=== PATIENT | male | born 1990 | race Caucasian/White ===

== ENCOUNTER 2018-07-27 16:14 | Emergency (ER) | payer OTHER ==
[2018-07-27 16:20] VITALS: BP 125/67
[2018-07-27] MEDS ORDERED: KETOROLAC 60 MG/2 ML VIAL IM STA (16:32)
[2018-07-27] MEDS ORDERED: ONDANSETRON ODT 4 MG TABLET TL STA (16:32)
--- NOTE | 2018-07-27 16:36 | ED Physician Documentation ---
PD HPI NVD - Stated complaint Stated Complaint: SAUNDERS/NAUSEA - Chief complaint Chief Complaint: Abd Pain - History obtained from History obtained from: Patient - History of Present Illness Timing - onset: Other (He and his present simultaneously for similar complaints. He developed a gradual onset headache with chills and sweats and nausea yesterday. They attributed to eating at a pizza place the night prior. He has abdominal cramping. No diarrhea.) Review of Systems Constitutional: reports: Reviewed and negative Ears: reports: Reviewed and negative Nose: reports: Reviewed and negative Cardiac: reports: Reviewed and negative Respiratory: reports: Reviewed and negative PD PAST MEDICAL HISTORY - Present Medications Home Medications: Ambulatory Orders Medication Instructions Recorded Confirmed Hydrocodone/Acetaminophen 1 - 2 each PO Q6H PRN #10 tablet 07/27/18 [Hydrocodon-Acetaminophen 5-325] Ondansetron Odt [Zofran] 4 mg TL Q6H PRN #10 tablet 07/27/18 - Allergies Allergies/Adverse Reactions: Allergies Allergy/AdvReac Type Severity Reaction Status Date / Time No Known Drug Allergies Allergy Verified 07/27/18 16:20 PD ED PE NORMAL - Vitals Vital signs reviewed: Yes - General General: Alert and oriented X 3, No acute distress - HEENT HEENT: PERRL, EOMI, Moist mucous membranes, Pharynx benign - Neck Neck: Supple, no meningeal sign, No bony TTP - Abdomen Abdomen: Soft, Non tender - Neuro Neuro: Alert and oriented X 3, 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 Eye Opening: Spontaneous Motor: Obeys Commands Verbal: Oriented GCS Score: 15 - Psych Psych: Normal mood, Normal affect Results - Vitals Vitals: Vital Signs - 24 hr 07/27/18 16:18 Temperature 37.0 C Heart Rate 73 Respiratory 18 Rate Blood Pressure 125/67 O2 Saturation 99 Oxygen O2 Source Room air - Labs Labs: Laboratory Tests 07/27/18 07/27/18 16:50 16:50 VBG Total Hgb 16.5 VBG Oxyhemoglobin 52 L VBG Carboxyhemoglobin 1.4 VBG Methemoglobin 0.3 Sodium 139 Potassium 4.3 Chloride 100 L Carbon Dioxide 28 Anion Gap 11.0 BUN 12 Creatinine 0.8 Estimated GFR (MDRD) 115 Glucose 97 Calcium 9.7 Total Bilirubin 0.8 AST 36 ALT 54 Alkaline Phosphatase 84 Total Protein 8.2 Albumin 4.5 Globulin 3.7 Albumin/Globulin Ratio 1.2 Lipase 54 H PD MEDICAL DECISION MAKING - ED course ED course: This is a 20-year-old gentleman who presents with nausea and headache after eating at a pizza place with potentially bad food and his has similar symptoms. No carbon monoxide poisoning. This is likely viral versus food poisoning. He felt okay after medications. Departure - Departure Disposition: 01 Home, Self Care Clinical Impression: Viral syndrome Condition: Good Record reviewed to determine appropriate education?: Yes Instructions: ED Viral Syndrome Prescriptions: Hydrocodone/Acetaminophen [Hydrocodon-Acetaminophen 5-325] 1 - 2 each PO Q6H PRN #10 tablet PRN Reason: pain Ondansetron Odt [Zofran] 4 mg TL Q6H PRN #10 tablet PRN Reason: Nausea / Vomiting Comments: Call your doctor to arrange a follow-up appointment, make the next available appointment. In the interim, return anytime if worse or if new symptoms develop. Forms: Activity restrictions
[2018-07-27 17:14] LABS: ALBUMIN 4.5 g/dL (3.2-5.5); ALBUMIN/GLOBULIN RATIO 1.2 (1.0-2.2); BILIRUBIN,TOTAL 0.8 mg/dL (0.2-1.0); CALCIUM 9.7 mg/dL (8.5-10.3); CREATININE 0.8 mg/dL (0.6-1.2); TOTAL PROTEIN 8.2 g/dL (6.7-8.2)
[2018-07-27] MEDS ORDERED: HYDROcod/ACET 5/325 Prepack 4 PO STA (17:28)
[2018-07-27] MEDS ORDERED: ONDANSETRON ODT 4 MG Prepack 2 TL STA (17:28)
== END 2018-07-27 17:45 | disposition home or self-care (01) ==
LOC: ED 16:14
DX: B34.9 Viral infection, unspecified (principal)
CPT/HCPCS: 36415; 80053; 82375; 83690; 96372; 99283; Q0162

== ENCOUNTER 2018-09-14 14:51 | Emergency (ER) | payer OTHER ==
--- NOTE | 2018-09-14 16:35 | ED Physician Documentation ---
PD HPI SKIN - Stated complaint Stated Complaint: RT GREAT TOE WOUND - Chief complaint Chief Complaint: Trauma Ext - History obtained from History obtained from: Patient - History of Present Illness Timing - onset: How many days ago (several days with toe corner red and then draining some pus. Very tender. No improving with soaks and oitnment. He did try to trim out ingrown nail but not sure if all came out.) Timing - duration: Days Timing - details: Abrupt onset, Still present Location: RLE (great toe nailbed corner) Quality / character: Painful, Discolored (red, around nailbed and now in much of distal phalanx area.), Swelling, Draining (from corner of nailbed) Associated symptoms: No: Fever, Myalgias, N/V/D Similar symptoms before: Has not had sx before Recently seen: Not recently seen Review of Systems Constitutional: denies: Fever, Chills, Myalgias GI: denies: Nausea, Vomiting PD PAST MEDICAL HISTORY - Past Medical History Cardiovascular: None Respiratory: None Neuro: None Endocrine/Autoimmune: None - Past Surgical History Past Surgical History: No - Present Medications Home Medications: Ambulatory Orders Medication Instructions Recorded Confirmed Hydrocodone/Acetaminophen 1 - 2 each PO Q6H PRN #10 tablet 07/27/18 [Hydrocodon-Acetaminophen 5-325] Ondansetron Odt [Zofran] 4 mg TL Q6H PRN #10 tablet 07/27/18 Ibuprofen 600 mg PO TID PRN #25 tablet 09/14/18 Mupirocin 1 applic TP TID #15 g 09/14/18 Sulfamethox/Trimeth 800/160 1 each PO BID #10 tablet 09/14/18 [Bactrim Ds 800/160] - Allergies Allergies/Adverse Reactions: Allergies Allergy/AdvReac Type Severity Reaction Status Date / Time No Known Drug Allergies Allergy Verified 09/14/18 15:04 - Social History Does the pt smoke?: No Smoking Status: Never smoker Does the pt drink ETOH?: Yes Does the pt have substance abuse?: No - Immunizations Immunizations are current?: Yes - POLST Patient has POLST: No PD ED PE NORMAL - Vitals Vital signs reviewed: Yes - General General: Alert and oriented X 3, No acute distress (except tender on exam of toe), Well developed/nourished - Derm Derm: Normal color, Warm and dry - Extremities Extremities: Other (right great toe with lateral aspect redness, swelling and this extends to the end of the toe almost to the IP joint area. Some purulence at corner. There is small portion of ingrown nail still deep in corner. I was able to gently scissor it out and clear the corner with brief discomfort. ) - Neuro Neuro: No motor deficit, No sensory deficit Results - Vitals Vitals: Vital Signs - 24 hr 09/14/18 09/14/18 15:02 17:19 Temperature 37.0 C 36.7 C Heart Rate 57 L 65 Respiratory 18 20 Rate Blood Pressure 122/78 136/85 H O2 Saturation 96 99 Oxygen O2 Source Room air PD MEDICAL DECISION MAKING - ED course Complexity details: considered differential (paronychia with still small bit of ingrown nail, that is removed now. Should improve. Local cellulitis though. ), d/w patient Departure - Departure Disposition: 01 Home, Self Care Clinical Impression: Paronychia due to ingrown nail Condition: Stable Record reviewed to determine appropriate education?: Yes Instructions: ED Paronychia Ch Follow-Up: [facility] [Provider Group] Prescriptions: Ibuprofen 600 mg PO TID PRN #25 tablet PRN Reason: Pain Mupirocin 1 applic TP TID #15 g Sulfamethox/Trimeth 800/160 [Bactrim Ds 800/160] 1 each PO BID #10 tablet Comments: Off work today and tomorrow due to acute toe infection. Recheck if not improving during that time. Soak the toe several times a day in warm water. This is to promote better continued drainage. Use mupirocin and topical antibiotic as directed. Bactrim antibiotic twice daily for 5 days. Discharge Date/Time: 09/14/18 17:20
[2018-09-14] MEDS ORDERED: MUPIROCIN 2% OINT 1 GM TOP STA (17:04)
[2018-09-14] MEDS ORDERED: IBUPROFEN 600 MG TABLET PO STA (17:04)
[2018-09-14] MEDS ORDERED: SULFAMETH/TRIMETH DS 800/160 MG TABLET PO STA (17:04)
[2018-09-14 17:20] VITALS: BP 136/85
== END 2018-09-14 17:20 | disposition home or self-care (01) ==
LOC: ED 14:51
DX: L03.031 Cellulitis of right toe (principal); L60.0 Ingrowing nail
CPT/HCPCS: 99283; A9270

== ENCOUNTER 2019-03-31 15:51 | Emergency (ER) | payer OTHER ==
[2019-03-31] MEDS ORDERED: KETOROLAC 30 MG/ML VIAL IVP STA (16:36)
[2019-03-31] MEDS ORDERED: SODIUM CHLORIDE 0.9% 1,000 ML IV ONE (16:36)
--- NOTE | 2019-03-31 16:39 | ED Physician Documentation ---
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 He came sick yesterday with fevers, sweats, runny nose. Was seen on the [place] and diagnosed with influenza B and started on Tamiflu. Subsequent to that, last night, he was acting strange, using excessively foul language with the and inappropriately sexual and then talked about going to [place] to get a puppy. Today he was having Rigor's on the couch. Denies vomiting. No diarrhea.) Review of Systems Constitutional: reports: Fever, Chills, Fatigue Nose: reports: Rhinorrhea / runny nose GI: denies: Vomiting, Diarrhea PD PAST MEDICAL HISTORY - Past Medical History Cardiovascular: None Respiratory: None Neuro: None Endocrine/Autoimmune: None - Past Surgical History Past Surgical History: No - Present Medications Home Medications: Ambulatory Orders Medication Instructions Recorded Confirmed Hydrocodone/Acetaminophen 1 - 2 each PO Q6H PRN #10 tablet 07/27/18 [Hydrocodon-Acetaminophen 5-325] Ondansetron Odt [Zofran] 4 mg TL Q6H PRN #10 tablet 07/27/18 Ibuprofen 600 mg PO TID PRN #25 tablet 09/14/18 Mupirocin 1 applic TP TID #15 g 09/14/18 Sulfamethox/Trimeth 800/160 1 each PO BID #10 tablet 09/14/18 [Bactrim Ds 800/160] - Allergies Allergies/Adverse Reactions: Allergies Allergy/AdvReac Type Severity Reaction Status Date / Time No Known Drug Allergies Allergy Verified 03/31/19 15:54 - Social History Does the pt smoke?: No Smoking Status: Never smoker Does the pt drink ETOH?: Yes Does the pt have substance abuse?: No - Immunizations Immunizations are current?: Yes - POLST Patient has POLST: No PD ED PE NORMAL - Vitals Vital signs reviewed: Yes - General General: Alert and oriented X 3, No acute distress - HEENT HEENT: PERRL, Pharynx benign - Neck Neck: Supple, no meningeal sign, No bony TTP - Cardiac Cardiac: RRR, No murmur - Respiratory Respiratory: No respiratory distress, Clear bilaterally - Abdomen Abdomen: Soft, Non tender - Back Back: No CVA TTP, No spinal TTP - Derm Derm: Normal color, Warm and dry - Extremities Extremities: No edema, No calf tenderness / cord - Neuro Neuro: Alert and oriented X 3, Normal speech - Psych Psych: Normal mood, Normal affect Results - Vitals Vitals: Vital Signs - 24 hr 03/31/19 15:54 Temperature 36.8 C Heart Rate 65 Respiratory 18 Rate Blood Pressure 113/68 O2 Saturation 97 Oxygen O2 Source Room air - Labs Labs: Laboratory Tests 03/31/19 03/31/19 18:44 18:44 WBC 7.2 RBC 4.50 L Hgb 13.4 L Hct 40.6 L MCV 90.2 MCH 29.8 MCHC 33.0 RDW 12.4 Plt Count 202 MPV 9.3 Neut # (Auto) 4.8 Lymph # (Auto) 1.3 L [place] # (Auto) 0.9 Eos # (Auto) 0.1 Baso # (Auto) 0.0 Absolute Nucleated RBC 0.00 Nucleated RBC % 0.0 Sodium 140 Potassium 4.1 Chloride 107 Carbon Dioxide 27 Anion Gap 6.0 BUN 7 Creatinine 0.8 Estimated GFR (MDRD) 115 Glucose 100 Calcium 8.3 L Total Bilirubin 0.7 AST 31 ALT 57 Alkaline Phosphatase 56 Total Protein 6.8 Albumin 3.6 Globulin 3.2 Albumin/Globulin Ratio 1.1 Lipase 41 PD MEDICAL DECISION MAKING - ED course ED course: This is a 28-year-old gentleman with known influenza B diagnosed in the clinic yesterday now with some apparent but mild neuropsychiatric side effects from Tamiflu. He was also having some Reiger's on the couch prior to arrival versus less likely seizure activity, he was shaking on the couch but his mental status was not significantly altered so I doubt seizure. We will give him some IV fluids. Given the side effects he is advised to stop Tamiflu. Departure - Departure Disposition: 01 Home, Self Care Clinical Impression: Influenza B Condition: Good Record reviewed to determine appropriate education?: Yes Instructions: ED Flu Comments: Stop the Tamiflu/oseltamivir, I think for you the side effects are worse than any shortening of the illness it will offer you. Drink plenty of fluids. Ibuprofen as needed for pain or fevers. Forms: Activity restrictions
[2019-03-31 18:47] LABS: BASOPHILS % (AUTO) 0.4 %; EOSINOPHILS # (AUTO) 0.1 10^3/uL (0.0-0.7); EOSINOPHILS % (AUTO) 1.5 %; HGB - HEMOGLOBIN 13.4 g/dL (14.0-18.0); LYMPHOCYTES # (AUTO) 1.3 10^3/uL (1.5-3.5); LYMPHOCYTES % (AUTO) 18.1 %; MEAN CORPUSCULAR HEMOGLOBIN 29.8 pg (27.0-31.0); MEAN CORPUSCULAR VOLUME 90.2 fL (80.0-94.0); MEAN PLATELET VOLUME 9.3 fL (7.4-11.4); MONOCYTES # (AUTO) 0.9 10^3/uL (0.0-1.0); MONOCYTES % (AUTO) 12.8 %; NEUTROPHILS # (AUTO) 4.8 10^3/uL (1.5-6.6); NEUTROPHILS % (AUTO) 66.9 %; PLT - PLATELET COUNT 202 10^3/uL (130-450); RED CELL DISTRIBUTION WIDTH 12.4 % (12.0-15.0); WHITE BLOOD COUNT 7.2 x10^3/uL (4.8-10.8)
[2019-03-31 19:01] LABS: ALBUMIN 3.6 g/dL (3.2-5.5); ALBUMIN/GLOBULIN RATIO 1.1 (1.0-2.2); BILIRUBIN,TOTAL 0.7 mg/dL (0.2-1.0); CALCIUM 8.3 mg/dL (8.5-10.3); CREATININE 0.8 mg/dL (0.6-1.2); TOTAL PROTEIN 6.8 g/dL (6.7-8.2)
[2019-03-31 19:10] VITALS: BP 130/84
== END 2019-03-31 19:10 | disposition home or self-care (01) ==
LOC: ED 15:51
DX: R46.89 Other symptoms and signs involving appearance and behavior (principal); R68.89 Other general symptoms and signs; T37.5X5A Adverse effect of antiviral drugs, initial encounter; J11.1 Influenza due to unidentified influenza virus with other respiratory manifestations
CPT/HCPCS: 36415; 80053; 83690; 85025; 96361; 96374; 99284

== ENCOUNTER 2019-04-03 10:53 | Emergency (ER) | payer OTHER ==
[2019-04-03] MEDS ORDERED: ALBUTEROL NEB 2.5 MG/3 ML INH STA (12:23)
[2019-04-03] MEDS ORDERED: SODIUM CHLORIDE 0.9% 2,000 ML IV ONE (12:31)
--- NOTE | 2019-04-03 12:35 | ED Physician Documentation ---
PD HPI URI - Stated complaint Stated Complaint: SOA/DIZZY/COUGH - Chief complaint Chief Complaint: Fever - History obtained from History obtained from: Patient, Family - History of Present Illness Timing - onset: How many days ago (4) Timing duration: Days (4) Timing details: Gradual onset Pain level max: 5 Pain level now: 5 Associated symptoms: Fever, Chills, Sweats, Nasal congestion, Rhinorrhea, Productive cough (green/yellow), NVD (x1 vomit). No: Hemoptysis, Chest pain, Dyspnea Contributing factors: Sick contact Improves by: Rest Worsened by: Activity, Breathing Similar symptoms before: Diagnosis (influenza B) Recently seen: Emergency Dept (2 days ago for same. States not better) Review of Systems Ten Systems: 10 systems reviewed and negative Constitutional: reports: Fever, Chills Nose: reports: Rhinorrhea / runny nose, Congestion Respiratory: reports: Cough GI: reports: Vomiting. denies: Abdominal Pain, Diarrhea Skin: denies: Rash Musculoskeletal: denies: Neck pain, Back pain Neurologic: denies: Headache PD PAST MEDICAL HISTORY - Past Medical History Cardiovascular: None Respiratory: None Neuro: None Endocrine/Autoimmune: None GI: None : None HEENT: None Psych: None Musculoskeletal: None Derm: None - Past Surgical History Past Surgical History: No - Present Medications Home Medications: Ambulatory Orders Medication Instructions Recorded Confirmed Hydrocodone/Acetaminophen 1 - 2 each PO Q6H PRN #10 tablet 07/27/18 [Hydrocodon-Acetaminophen 5-325] Ondansetron Odt [Zofran] 4 mg TL Q6H PRN #10 tablet 07/27/18 Ibuprofen 600 mg PO TID PRN #25 tablet 09/14/18 Mupirocin 1 applic TP TID #15 g 09/14/18 Sulfamethox/Trimeth 800/160 1 each PO BID #10 tablet 09/14/18 [Bactrim Ds 800/160] Benzonatate [Tessalon Perle] 100 - 200 mg PO TID PRN #30 capsule 04/03/19 Cetirizine HCl/Pseudoephedrine 1 each PO BID PRN #30 tab.er.12h 04/03/19 [Zyrtec-D Tablet] Doxycycline Hyclate 100 mg PO BID #20 capsule 04/03/19 Ondansetron Odt [Zofran] 4 mg TL Q6H PRN #10 tablet 04/03/19 - Allergies Allergies/Adverse Reactions: Allergies Allergy/AdvReac Type Severity Reaction Status Date / Time oseltamivir [From Tamiflu] Allergy Hallucinati Verified 04/03/19 11:07 ons - Social History Does the pt smoke?: No Smoking Status: Never smoker Does the pt drink ETOH?: Yes Does the pt have substance abuse?: No - Immunizations Immunizations are current?: Yes - POLST Patient has POLST: No PD ED PE NORMAL - Vitals Vital signs reviewed: Yes - General General: Alert and oriented X 3, No acute distress, Well developed/nourished - HEENT HEENT: PERRL, Ears normal, Pharynx benign, Other (dry lips) - Neck Neck: Supple, no meningeal sign, No adenopathy - Cardiac Cardiac: RRR, Strong equal pulses - Respiratory Respiratory: Other (mild wheezing B) - Abdomen Abdomen: Soft, Non tender, Non distended - Back Back: No CVA TTP - Derm Derm: Warm and dry, No rash - Extremities Extremities: No edema - Neuro Neuro: Alert and oriented X 3 - Psych Psych: Normal mood, Normal affect Results - Vitals Vitals: Vital Signs - 24 hr 04/03/19 04/03/19 04/03/19 11:03 12:30 14:28 Temperature 36.9 C 37.0 C Heart Rate 66 70 77 Respiratory 16 16 20 Rate Blood Pressure 118/78 133/75 H O2 Saturation 98 98 Oxygen O2 Source Room air - Labs Labs: Laboratory Tests 04/03/19 04/03/19 04/03/19 13:02 13:02 13:37 WBC 6.0 RBC 5.17 Hgb 15.1 Hct 45.7 MCV 88.4 MCH 29.2 MCHC 33.0 RDW 12.1 Plt Count 240 MPV 9.7 Neut # (Auto) 3.8 Lymph # (Auto) 1.5 [place] # (Auto) 0.5 Eos # (Auto) 0.1 Baso # (Auto) 0.0 Absolute Nucleated RBC 0.00 Nucleated RBC % 0.0 Sodium 138 Potassium 3.7 Chloride 101 Carbon Dioxide 27 Anion Gap 10.0 BUN 8 Creatinine 0.9 Estimated GFR (MDRD) 100 Glucose 112 H Calcium 9.1 Group A Strep Rapid Negative - Rads (name of study) cxr Radiology: Prelim report reviewed, EMP read contemporaneously, See rad report (1. Patchy left basilar bronchopneumonia. ) PD MEDICAL DECISION MAKING - ED course Complexity details: reviewed results, re-evaluated patient, considered differential, d/w patient, d/w family ED course: 28-year-old male with bronchopneumonia following influenza B. Given IV fluids. Will start on antibiotics. No hypoxia. No respiratory distress. Normal mentation. Patient is well-appearing, nontoxic. Patient counseled regarding signs and symptoms for which I believe and urgent re-evaluation would be necessary. Patient with good understanding of and agreement to plan and is comfortable going home at this time This document was made in part using voice recognition software. While efforts are made to proofread this document, sound alike and grammatical errors may occur. Departure - Departure Disposition: 01 Home, Self Care Clinical Impression: Influenza B Pneumonia Qualifiers: Pneumonia type: due to unspecified organism Laterality: left Lung location: lower lobe of lung Qualified Code(s): J18.9 - Pneumonia, unspecified organism Condition: Good Instructions: ED Flu, ED Pneumonia Adult Follow-Up: Tali Smart MD [Primary Care Provider] - Within 1 week Prescriptions: Benzonatate [Tessalon Perle] 100 - 200 mg PO TID PRN #30 capsule PRN Reason: Cough Cetirizine HCl/Pseudoephedrine [Zyrtec-D Tablet] 1 each PO BID PRN #30 tab.er.12h PRN Reason: nasal congestion Doxycycline Hyclate 100 mg PO BID #20 capsule Ondansetron Odt [Zofran] 4 mg TL Q6H PRN #10 tablet PRN Reason: Nausea / Vomiting Comments: Drink plenty of fluids and rest. Return if you worsen. Take all antibiotics until gone. Follow-up with your doctor for further care. Forms: Activity restrictions Discharge Date/Time: 04/03/19 14:32
[2019-04-03 13:15] LABS: BASOPHILS % (AUTO) 0.3 %; EOSINOPHILS # (AUTO) 0.1 10^3/uL (0.0-0.7); EOSINOPHILS % (AUTO) 2.2 %; HGB - HEMOGLOBIN 15.1 g/dL (14.0-18.0); LYMPHOCYTES # (AUTO) 1.5 10^3/uL (1.5-3.5); LYMPHOCYTES % (AUTO) 24.5 %; MEAN CORPUSCULAR HEMOGLOBIN 29.2 pg (27.0-31.0); MEAN CORPUSCULAR VOLUME 88.4 fL (80.0-94.0); MEAN PLATELET VOLUME 9.7 fL (7.4-11.4); MONOCYTES # (AUTO) 0.5 10^3/uL (0.0-1.0); MONOCYTES % (AUTO) 8.7 %; NEUTROPHILS # (AUTO) 3.8 10^3/uL (1.5-6.6); NEUTROPHILS % (AUTO) 63.8 %; PLT - PLATELET COUNT 240 10^3/uL (130-450); RED BLOOD COUNT 5.17 10^6/uL (4.70-6.10); RED CELL DISTRIBUTION WIDTH 12.1 % (12.0-15.0)
--- NOTE | 2019-04-03 13:22 | XRAY Report ---
Reason: cough Procedure Date: 04/03/2019 Accession Number: [id number] / [id number] Procedure: XR - Chest 2 View X-Ray CPT Code: 95964 Final Report FULL RESULT: EXAM: CHEST RADIOGRAPHY EXAM DATE: 04/03/2019 12:58 PM. CLINICAL HISTORY: Cough. COMPARISON: None. TECHNIQUE: 2 views. FINDINGS: Lungs/Pleura: There is asymmetric mild patchy airspace disease at the lateral left lung base. The right lung is clear. Negative for pleural effusion and pneumothorax. Mediastinum: The heart size is normal. The trachea is midline. Other: None. IMPRESSION: 1. Patchy left basilar bronchopneumonia. RADIA
[2019-04-03] MEDS ORDERED: DOXYCYCLINE 100 MG TABLET PO STA (13:27)
[2019-04-03 13:50] LABS: RAPID STREP SCREEN Negative (Negative)
[2019-04-03 14:11] LABS: CALCIUM 9.1 mg/dL (8.5-10.3); CREATININE 0.9 mg/dL (0.6-1.2)
[2019-04-03 14:28] VITALS: BP 133/75
== END 2019-04-03 14:32 | disposition home or self-care (01) ==
LOC: ED 10:53
DX: J10.08 Influenza due to other identified influenza virus with other specified pneumonia (principal); J18.0 Bronchopneumonia, unspecified organism
CPT/HCPCS: 36415; 71046; 80048; 85025; 87070; 87430; 94640; 96360; 99284; A9270

== ENCOUNTER 2019-04-06 17:02 | Emergency (ER) | payer OTHER ==
--- NOTE | 2019-04-06 17:43 | XRAY Report ---
Reason: PNA, worse after 3 days of ABX Procedure Date: 04/06/2019 Accession Number: [id number] / [id number] Procedure: XR - Chest 2 View X-Ray CPT Code: 33206 Final Report FULL RESULT: EXAM: CHEST RADIOGRAPHY EXAM DATE: 04/06/2019 05:34 PM. CLINICAL HISTORY: PNA, worse after 3 days of ABX. Cough, syncope. COMPARISON: CHEST 2 VIEW 04/03/2019 12:48 PM. TECHNIQUE: 2 views. FINDINGS: Lungs/Pleura: Patchy infiltration left lung base, decreased slightly since previous study. No new infiltrate, consolidation, effusion, or pneumothorax. Mediastinum: Heart and mediastinal contours are unremarkable. Other: None. IMPRESSION: Left basilar infiltrate, decreased slightly. RADIA
[2019-04-06] MEDS ORDERED: guaiFENesin/CODEINE 5 ML UDC PO STA (18:16)
[2019-04-06] MEDS ORDERED: LACTATED RINGERS 2,000 ML IV STA (18:16)
--- NOTE | 2019-04-06 18:19 | ED Physician Documentation ---
PD HPI DYSPNEA - Stated complaint Stated Complaint: COUGH,DISORIENTED - Chief complaint Chief Complaint: Resp - History obtained from History obtained from: Patient (28-year-old gentleman has been sick for a week now initial diagnosis of influenza B did not tolerate Tamiflu due to neuropsychiatric side effects. Subsequently developed a left lower lobe pneumonia and is on Doxycycline. Presyncopal when he coughs.) Review of Systems Constitutional: reports: Chills, Fatigue. denies: Fever Nose: denies: Rhinorrhea / runny nose Throat: denies: Sore throat Cardiac: denies: Chest pain / pressure, Palpitations Respiratory: reports: Dyspnea, Cough. denies: Hemoptysis, Wheezing PD PAST MEDICAL HISTORY - Past Medical History Cardiovascular: None Respiratory: None Neuro: None Endocrine/Autoimmune: None GI: None : None HEENT: None Psych: None Musculoskeletal: None Derm: None - Past Surgical History Past Surgical History: No - Present Medications Home Medications: Ambulatory Orders Medication Instructions Recorded Confirmed Hydrocodone/Acetaminophen 1 - 2 each PO Q6H PRN #10 tablet 07/27/18 [Hydrocodon-Acetaminophen 5-325] Ondansetron Odt [Zofran] 4 mg TL Q6H PRN #10 tablet 07/27/18 Ibuprofen 600 mg PO TID PRN #25 tablet 09/14/18 Mupirocin 1 applic TP TID #15 g 09/14/18 Sulfamethox/Trimeth 800/160 1 each PO BID #10 tablet 09/14/18 [Bactrim Ds 800/160] Benzonatate [Tessalon Perle] 100 - 200 mg PO TID PRN #30 capsule 04/03/19 Cetirizine HCl/Pseudoephedrine 1 each PO BID PRN #30 tab.er.12h 04/03/19 [Zyrtec-D Tablet] Doxycycline Hyclate 100 mg PO BID #20 capsule 04/03/19 Ondansetron Odt [Zofran] 4 mg TL Q6H PRN #10 tablet 04/03/19 oxyCODONE [Roxicodone] 5 mg PO Q4H PRN #15 tablet 04/06/19 - Allergies Allergies/Adverse Reactions: Allergies Allergy/AdvReac Type Severity Reaction Status Date / Time oseltamivir [From Tamiflu] Allergy Hallucinati Verified 04/06/19 17:17 ons - Social History Does the pt smoke?: No Smoking Status: Never smoker Does the pt drink ETOH?: Yes Does the pt have substance abuse?: No - Immunizations Immunizations are current?: Yes - POLST Patient has POLST: No PD ED PE NORMAL - Vitals Vital signs reviewed: Yes - General General: Other (Frequent coughing, no respiratory distress though) - HEENT HEENT: Pharynx benign - Neck Neck: Supple, no meningeal sign, No bony TTP - Cardiac Cardiac: RRR, No murmur - Respiratory Respiratory: No respiratory distress, Other (Crackles at the left base, nonlabored) - Abdomen Abdomen: Non tender - Back Back: No CVA TTP, No spinal TTP - Derm Derm: Normal color, Warm and dry - Extremities Extremities: No edema, No calf tenderness / cord - Neuro Neuro: Alert and oriented X 3, Normal speech Results - Vitals Vitals: Vital Signs - 24 hr 04/06/19 17:14 Temperature 37 C Heart Rate 68 Respiratory 18 Rate Blood Pressure 93/65 O2 Saturation 95 Oxygen O2 Source Room air - EKG (time done) 1721 Rate: Rate (enter#) (76) Rhythm: NSR Alpha: Normal Intervals: Normal TN QRS: Normal Ischemia: Normal ST segments Computer interpretation: Agree with computer - Labs Labs: Laboratory Tests 04/06/19 04/06/19 04/06/19 18:23 18:23 18:23 WBC 5.5 RBC 4.66 L Hgb 14.1 Hct 41.2 L MCV 88.4 MCH 30.3 MCHC 34.2 RDW 12.3 Plt Count 319 MPV 9.5 Neut # (Auto) 3.5 Lymph # (Auto) 1.4 L [place] # (Auto) 0.4 Eos # (Auto) 0.1 Baso # (Auto) 0.1 Absolute Nucleated RBC 0.00 Nucleated RBC % 0.0 PT 13.6 H INR 1.2 Sodium 138 Potassium 3.9 Chloride 104 Carbon Dioxide 27 Anion Gap 7.0 BUN 9 Creatinine 0.9 Estimated GFR (MDRD) 100 Glucose 115 H Calcium 8.8 Total Bilirubin 0.5 AST 60 H ALT 78 H Alkaline Phosphatase 65 Total Protein 7.5 Albumin 3.8 Globulin 3.7 Albumin/Globulin Ratio 1.0 Lipase 45 Acetaminophen Infectious [place] Assay 04/06/19 04/06/19 18:23 18:23 WBC RBC Hgb Hct MCV MCH MCHC RDW Plt Count MPV Neut # (Auto) Lymph # (Auto) [place] # (Auto) Eos # (Auto) Baso # (Auto) Absolute Nucleated RBC Nucleated RBC % PT INR Sodium Potassium Chloride Carbon Dioxide Anion Gap BUN Creatinine Estimated GFR (MDRD) Glucose Calcium Total Bilirubin AST ALT Alkaline Phosphatase Total Protein Albumin Globulin Albumin/Globulin Ratio Lipase Acetaminophen < 10 L Infectious [place] Assay NEGATIVE - Rads (name of study) 2v chest Radiology: EMP read contemporaneously (Left basilar infiltrate slightly decreased from prior) PD MEDICAL DECISION MAKING - ED course ED course: 1 8-year-old gentleman with known pneumonia presents with presyncope while coughing, likely due to increase in traffic pressure associated with dehydration. Lab work is unremarkable except for very mild transaminitis and he is taking multiple things with acetaminophen and he understands he needs to stop. Departure - Departure Disposition: 01 Home, Self Care Clinical Impression: Pneumonia, Influenza B Condition: Good Record reviewed to determine appropriate education?: Yes Instructions: Pneumonia Dc Prescriptions: oxyCODONE [Roxicodone] 5 mg PO Q4H PRN #15 tablet PRN Reason: pain or cough Comments[place]. Return if worse. Forms: Activity restrictions
[2019-04-06 18:27] LABS: BASOPHILS # (AUTO) 0.1 10^3/uL (0.0-0.1); BASOPHILS % (AUTO) 0.9 %; EOSINOPHILS # (AUTO) 0.1 10^3/uL (0.0-0.7); EOSINOPHILS % (AUTO) 2.3 %; HGB - HEMOGLOBIN 14.1 g/dL (14.0-18.0); LYMPHOCYTES # (AUTO) 1.4 10^3/uL (1.5-3.5); LYMPHOCYTES % (AUTO) 25.6 %; MEAN CORPUSCULAR HEMOGLOBIN 30.3 pg (27.0-31.0); MEAN CORPUSCULAR HGB CONC 34.2 g/dL (32.0-36.0); MEAN CORPUSCULAR VOLUME 88.4 fL (80.0-94.0); MEAN PLATELET VOLUME 9.5 fL (7.4-11.4); MONOCYTES # (AUTO) 0.4 10^3/uL (0.0-1.0); MONOCYTES % (AUTO) 7.6 %; NEUTROPHILS # (AUTO) 3.5 10^3/uL (1.5-6.6); NEUTROPHILS % (AUTO) 62.9 %; PLT - PLATELET COUNT 319 10^3/uL (130-450); RED BLOOD COUNT 4.66 10^6/uL (4.70-6.10); RED CELL DISTRIBUTION WIDTH 12.3 % (12.0-15.0); WHITE BLOOD COUNT 5.5 x10^3/uL (4.8-10.8)
[2019-04-06 18:48] LABS: ALBUMIN 3.8 g/dL (3.2-5.5); BILIRUBIN,TOTAL 0.5 mg/dL (0.2-1.0); CALCIUM 8.8 mg/dL (8.5-10.3); CREATININE 0.9 mg/dL (0.6-1.2); TOTAL PROTEIN 7.5 g/dL (6.7-8.2)
[2019-04-06 19:18] LABS: INR 1.2 (0.8-1.2); PT - PROTHROMBIN TIME 13.6 secs (9.9-12.6)
[2019-04-06 19:57] VITALS: BP 146/83
== END 2019-04-06 19:56 | disposition home or self-care (01) ==
LOC: ED 17:02
DX: J10.00 Influenza due to other identified influenza virus with unspecified type of pneumonia (principal); E86.0 Dehydration; R74.0 Nonspecific elevation of levels of transaminase and lactic acid dehydrogenase [LDH]
CPT/HCPCS: 36415; 71046; 80053; 83690; 85025; 85610; 86308; 93005; 96360; 99284; A9270; J7120; 80307

== ENCOUNTER 2019-04-16 06:23 | Emergency (ER) | payer OTHER ==
--- NOTE | 2019-04-16 07:01 | ED Physician Documentation ---
PD HPI URI - Stated complaint Stated Complaint: SOA/COUGH - Chief complaint Chief Complaint: Heent - History obtained from History obtained from: Patient - History of Present Illness Timing - onset: How many weeks ago (2) Timing duration: Weeks (2) Timing details: Gradual onset, Still present Associated symptoms: Productive cough, Dyspnea. No: Fever (did initially, but not recent fever.), Nasal congestion, Sore throat, Bilateral edema Contributing factors: No: Sick contact Similar symptoms before: Has not had sx before Recently seen: Clinic (Dx with pneumonia and Rx with doxy and Tessalon. Patient states not really improved. Tried to go back to work today, but repetitive cough and could not function well and coughing to point of gagging at times. No wheeze nor whoop.) Review of Systems Constitutional: denies: Fever, Chills Nose: reports: Congestion. denies: Rhinorrhea / runny nose Throat: denies: Sore throat Cardiac: denies: Chest pain / pressure Respiratory: reports: Dyspnea, Cough. denies: Wheezing GI: denies: Nausea, Vomiting, Diarrhea Skin: denies: Rash, Lesions PD PAST MEDICAL HISTORY - Past Medical History Past Medical History: No Cardiovascular: None Respiratory: None Neuro: None Endocrine/Autoimmune: None GI: None : None HEENT: None Psych: None Musculoskeletal: None Derm: None - Past Surgical History Past Surgical History: No - Present Medications Home Medications: Ambulatory Orders Medication Instructions Recorded Confirmed Hydrocodone/Acetaminophen 1 - 2 each PO Q6H PRN #10 tablet 07/27/18 [Hydrocodon-Acetaminophen 5-325] Ondansetron Odt [Zofran] 4 mg TL Q6H PRN #10 tablet 07/27/18 Ibuprofen 600 mg PO TID PRN #25 tablet 09/14/18 Mupirocin 1 applic TP TID #15 g 09/14/18 Sulfamethox/Trimeth 800/160 1 each PO BID #10 tablet 09/14/18 [Bactrim Ds 800/160] Benzonatate [Tessalon Perle] 100 - 200 mg PO TID PRN #30 capsule 04/03/19 Cetirizine HCl/Pseudoephedrine 1 each PO BID PRN #30 tab.er.12h 04/03/19 [Zyrtec-D Tablet] Doxycycline Hyclate 100 mg PO BID #20 capsule 04/03/19 Ondansetron Odt [Zofran] 4 mg TL Q6H PRN #10 tablet 04/03/19 oxyCODONE [Roxicodone] 5 mg PO Q4H PRN #15 tablet 04/06/19 Albuterol Sulfate [Albuterol 2 puffs IH QID #1 hfa.aer.ad 04/16/19 Sulfate Hfa] Azithromycin [Zithromax] 0 mg PO DAILY #6 tablet 04/16/19 dexAMETHasone [Decadron] 4 mg PO DAILY #7 tablet 04/16/19 guaiFENesin/CODEINE [Robitussin AC] 10 ml PO Q6H PRN #240 ml 04/16/19 - Allergies Allergies/Adverse Reactions: Allergies Allergy/AdvReac Type Severity Reaction Status Date / Time oseltamivir [From Tamiflu] Allergy Hallucinati Verified 04/16/19 06:33 ons - Living Situation Living Arrangement: reports: At home - Social History Does the pt smoke?: No Smoking Status: Never smoker Does the pt drink ETOH?: Yes Does the pt have substance abuse?: No - Family History Family history: reports: Non contributory - Immunizations Immunizations are current?: Yes - POLST Patient has POLST: No PD ED PE NORMAL - Vitals Vital signs reviewed: Yes - General General: Alert and oriented X 3, Well developed/nourished, Other (repetitive cough with some wheezing sound. ) - HEENT HEENT: Moist mucous membranes, Pharynx benign - Neck Neck: Supple, no meningeal sign, No adenopathy - Cardiac Cardiac: RRR, No murmur - Respiratory Respiratory: Clear bilaterally - Abdomen Abdomen: Soft, Non tender - Derm Derm: Normal color, Warm and dry - Neuro Neuro: Alert and oriented X 3, No motor deficit, Normal speech Results - Vitals Vitals: Vital Signs - 24 hr 04/16/19 04/16/19 04/16/19 06:31 07:32 08:19 Temperature 36.6 C Heart Rate 73 80 82 Respiratory 17 20 18 Rate Blood Pressure 123/80 121/84 H O2 Saturation 96 96 Oxygen O2 Source Room air - Rads (name of study) chest xray Radiology: Prelim report reviewed (improved infiltrate), See rad report PD MEDICAL DECISION MAKING - ED course Complexity details: considered differential (persistent cough post pneumonia, could be just irritation but has some productive sputum and malaise still, so might be active infection still. ), d/w patient Departure - Departure Disposition: 01 Home, Self Care Clinical Impression: Persistent cough Upper respiratory infection Qualifiers: URI type: unspecified URI Qualified Code(s): J06.9 - Acute upper respiratory infection, unspecified Condition: Stable Record reviewed to determine appropriate education?: Yes Follow-Up: [facility] [Provider Group] Prescriptions: Albuterol Sulfate [Albuterol Sulfate Hfa] 2 puffs IH QID #1 hfa.aer.ad Azithromycin [Zithromax] 0 mg PO DAILY #6 tablet dexAMETHasone [Decadron] 4 mg PO DAILY #7 tablet guaiFENesin/CODEINE [Robitussin AC] 10 ml PO Q6H PRN #240 ml PRN Reason: Cough Comments: Decadron steroid anti-inflammatory should help with the cough through the day today and into tomorrow. It decreases inflammation through the bronchials. There may still be some persistent infection though commonly this is just persisting irritation. However we can try different antibiotic Zithromax for 5 days. Use the albuterol inhaler 2 puffs 4 times a day as it may have some added benefit in combination with the rest. Codeine cough medicine in the short-term to help with some of the cough suppression. Off work today and possibly tomorrow until you are feeling a bit better. Your chest x-ray is clear so the pneumonia has resolved. Forms: Activity restrictions Discharge Date/Time: 04/16/19 08:20
[2019-04-16] MEDS ORDERED: DEXAMETHASONE 10 MG/ML VIAL PO STA (07:15)
[2019-04-16] MEDS ORDERED: ALBUTEROL NEB 2.5 MG/3 ML INH STA (07:15)
[2019-04-16] MEDS ORDERED: CHERRY SYRUP 10 ML UDC PO ONE (07:15)
[2019-04-16] MEDS ORDERED: BENZONATATE 100 MG CAPSULE PO STA (07:15)
--- NOTE | 2019-04-16 07:40 | XRAY Report ---
Reason: dyspnea/ cough Procedure Date: 04/16/2019 Accession Number: [id number] / [id number] Procedure: XR - Chest 2 View X-Ray CPT Code: 40483 Final Report FULL RESULT: EXAM: CHEST RADIOGRAPHY EXAM DATE: 04/16/2019 07:26 AM. CLINICAL HISTORY: 28-year-old male. Dyspnea/ cough. COMPARISON: CHEST 2 VIEW 04/06/2019 5:22 PM. TECHNIQUE: 2 views. FINDINGS: Lungs/Pleura: Further interval decrease in left basilar airspace opacity. No new focal opacities evident. No pleural effusion. No pneumothorax. Normal volumes. Mediastinum: Heart and mediastinal contours are unremarkable. Other: None. IMPRESSION: Further interval decrease in left basilar airspace opacity. No new focal opacities evident. No pleural effusion. No pneumothorax. Normal volumes. RADIA
[2019-04-16 08:20] VITALS: BP 121/84
== END 2019-04-16 08:20 | disposition home or self-care (01) ==
LOC: ED 06:23
DX: J06.9 Acute upper respiratory infection, unspecified (principal)
CPT/HCPCS: 71046; 94640; 99284; A9270

== ENCOUNTER 2019-04-23 20:48 | Emergency (ER) | payer OTHER ==
--- NOTE | 2019-04-23 22:13 | ED Physician Documentation ---
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 He denies any fevers or any history of compartment syndrome he denies any sensory loss or motor function.Patient reports she is right-hand dominant. He reports that his left wrist hurts worse than his right wrist.) Review of Systems Ten Systems: 10 systems reviewed and negative Constitutional: reports: Reviewed and negative Eyes: reports: Reviewed and negative Ears: reports: Reviewed and negative Nose: reports: Reviewed and negative Throat: reports: Reviewed and negative Cardiac: reports: Reviewed and negative Respiratory: reports: Reviewed and negative GI: reports: Reviewed and negative : reports: Reviewed and negative Skin: reports: Reviewed and negative Musculoskeletal: reports: Reviewed and negative Neurologic: reports: Reviewed and negative Psychiatric: reports: Reviewed and negative Endocrine: reports: Reviewed and negative Immunocompromised: reports: Reviewed and negative PD PAST MEDICAL HISTORY - Past Medical History Cardiovascular: None Respiratory: None Neuro: None Endocrine/Autoimmune: None GI: None : None HEENT: None Psych: None Musculoskeletal: None Derm: None - Past Surgical History Past Surgical History: No - Present Medications Home Medications: Ambulatory Orders Medication Instructions Recorded Confirmed No Known Home Medications 04/23/19 04/23/19 - Allergies Allergies/Adverse Reactions: Allergies Allergy/AdvReac Type Severity Reaction Status Date / Time oseltamivir [From Tamiflu] Allergy Hallucinati Verified 04/23/19 21:52 ons - Social History Does the pt smoke?: No Smoking Status: Never smoker Does the pt drink ETOH?: Yes Does the pt have substance abuse?: No - Immunizations Immunizations are current?: Yes - POLST Patient has POLST: No PD ED PE NORMAL - Vitals Vital signs reviewed: Yes - General General: Alert and oriented X 3, No acute distress - HEENT HEENT: PERRL - Neck Neck: Supple, no meningeal sign - Cardiac Cardiac: RRR, No murmur - Respiratory Respiratory: Clear bilaterally - Abdomen Abdomen: Normal bowel sounds, Soft, Non tender, Non distended - Derm Derm: Warm and dry - Extremities Extremities: No deformity, Other (The left and right upper extremities are neurovascularly intact in the radial the radian, median, ulnar motor and sensory exam are intact of bilateral upper extremities sensations intact to light touch to bilateral extremities manager training strength is 5 out of 5 in bilateral upper extremities is able to flex and extend at bilateral wrists without any gross deformities or any decreased in range of motion there is some tenderness over t he proximal left wrist but no gross deformity.) - Neuro Neuro: Alert and oriented X 3 - Psych Psych: Normal mood, Normal affect Results - Vitals Vitals: Vital Signs - 24 hr 04/23/19 04/24/19 20:55 00:11 Temperature 36.5 C 36.5 C Heart Rate 71 59 L Respiratory 15 16 Rate Blood Pressure 142/77 H 114/76 O2 Saturation 97 98 Oxygen O2 Source Room air Departure - Departure Clinical Impression: Wrist pain Qualifiers: Laterality: bilateral Qualified Code(s): M25.531 - Pain in right wrist Condition: Good Instructions: ED Contusion Upper Extr Ch Follow-Up: [facility] [Other]
[2019-04-23] MEDS ORDERED: KETOROLAC 30 MG/ML VIAL IM STA (22:42)
--- NOTE | 2019-04-23 23:11 | XRAY Report ---
Reason: Left wrist pain Procedure Date: 04/23/2019 Accession Number: [id number] / [id number] Procedure: XR - Wrist 3 View LT CPT Code: Final Report FULL RESULT: EXAM: LEFT WRIST RADIOGRAPHY. EXAM DATE: 04/23/2019 11:01 PM. CLINICAL HISTORY: Left wrist pain. COMPARISON: None. TECHNIQUE: 3 views. FINDINGS: Bones: Normal. No fractures or bone lesions. Joints: Normal. No subluxations. Soft Tissues: Normal. No soft tissue swelling. IMPRESSION: Normal wrist radiography. RADIA
[2019-04-24 00:14] VITALS: BP 114/76
== END 2019-04-24 00:34 | disposition home or self-care (01) ==
LOC: ED 20:48
DX: M25.531 Pain in right wrist (principal); M25.532 Pain in left wrist
CPT/HCPCS: 96372; 99283

== ENCOUNTER 2020-04-04 20:33 | Emergency (ER) | payer OTHER ==
--- NOTE | 2020-04-04 21:19 | ED Physician Documentation ---
History of Present Illness - Stated complaint Stated Complaint: FEVER,SOA - Chief complaint Chief Complaint: General - History obtained from History obtained from: Patient - History of Present Illness Timing: Enter time (07:00), Today Pain level max: 0 Pain level now: 0 - Additonal information Additional information: c/o fever Tmax 101 since 7 AM today. "slight sore throat", "slight" dyspnea. denies cough. mild rhinorrhea. Review of Systems Constitutional: reports: Fever. denies: Chills, Myalgias, Sweats Nose: reports: Rhinorrhea / runny nose. denies: Congestion, Sinus pressure / pain Throat: reports: Sore throat ("slight" (per patient)) Cardiac: denies: Chest pain / pressure Respiratory: reports: Dyspnea. denies: Cough Neurologic: denies: Headache PD PAST MEDICAL HISTORY - Past Medical History Cardiovascular: None Respiratory: None Neuro: None Endocrine/Autoimmune: None GI: None : None HEENT: None Psych: None Musculoskeletal: None Derm: None - Past Surgical History Past Surgical History: No - Present Medications Home Medications: Ambulatory Orders Medication Instructions Recorded Confirmed No Known Home Medications 04/23/19 04/23/19 - Allergies Allergies/Adverse Reactions: Allergies Allergy/AdvReac Type Severity Reaction Status Date / Time oseltamivir [From Tamiflu] Allergy Hallucinati Verified 04/23/19 21:52 ons - Social History Does the pt smoke?: No Smoking Status: Never smoker Does the pt drink ETOH?: Yes Does the pt have substance abuse?: No - Immunizations Immunizations are current?: Yes - POLST Patient has POLST: No PD ED PE NORMAL - Vitals Vital signs reviewed: Yes - General General: Alert and oriented X 3, No acute distress, Well developed/nourished - HEENT HEENT: Moist mucous membranes, Pharynx benign - Neck Neck: Supple, no meningeal sign - Cardiac Cardiac: RRR, No murmur, No gallop, No rub - Respiratory Respiratory: No respiratory distress, Clear bilaterally Results - Vitals Vitals: Vital Signs - 24 hr 04/04/20 04/04/20 20:35 21:48 Temperature 36.9 C 36.8 C Heart Rate 75 75 Respiratory 16 14 Rate Blood Pressure 158/90 H 148/79 H O2 Saturation 96 100 Oxygen O2 Source Room air PD MEDICAL DECISION MAKING - ED course Complexity details: considered differential, d/w patient Departure - Departure Disposition: 01 Home, Self Care Clinical Impression: Fever Qualifiers: Fever type: unspecified Qualified Code(s): R50.9 - Fever, unspecified Condition: Good Instructions: ED Fever Unconf Cause Follow-Up: [facility] [Provider Group] Forms: Activity restrictions Discharge Date/Time: 04/04/20 21:49
[2020-04-04 21:49] VITALS: BP 148/79
== END 2020-04-04 21:49 | disposition home or self-care (01) ==
LOC: ED 20:33
DX: R50.9 Fever, unspecified (principal); Z20.822 Contact with and (suspected) exposure to COVID-19
CPT/HCPCS: 99283

== ENCOUNTER 2020-06-27 06:39 | Emergency (ER) | payer OTHER ==
[2020-06-27] MEDS ORDERED: KETOROLAC 30 MG/ML VIAL IM STA (07:23)
--- NOTE | 2020-06-27 07:40 | ED Physician Documentation ---
History of Present Illness - Stated complaint Stated Complaint: LT NECK PX - Chief complaint Chief Complaint: General - History obtained from History obtained from: Patient - Additonal information Additional information: 30-year-old man, previously healthy presents with left shoulder throbbing constant gradual onset pain associated with neck stiffness radiating to the left neck progressively worsening over the past 3 days. It is moderate severity, worse with moving the neck suddenly. Denies fever, midline neck pain, traumatic injury, focal neurological deficit. Review of Systems Constitutional: denies: Fever Musculoskeletal: reports: Neck pain. denies: Back pain Neurologic: denies: Focal weakness, Numbness, Headache, Head injury PD PAST MEDICAL HISTORY - Past Medical History Past Medical History: No Cardiovascular: None Respiratory: None Neuro: None Endocrine/Autoimmune: None GI: None : None HEENT: None Psych: None Musculoskeletal: None Derm: None - Past Surgical History Past Surgical History: No - Present Medications Home Medications: Ambulatory Orders Medication Instructions Recorded Confirmed No Known Home Medications 04/23/19 06/27/20 - Allergies Allergies/Adverse Reactions: Allergies Allergy/AdvReac Type Severity Reaction Status Date / Time oseltamivir [From Tamiflu] Allergy Hallucinati Verified 06/27/20 06:50 ons - Social History Does the pt smoke?: No Smoking Status: Never smoker Does the pt drink ETOH?: Yes Does the pt have substance abuse?: No - Immunizations Immunizations are current?: Yes - POLST Patient has POLST: No PD ED PE NORMAL - Vitals Vital signs reviewed: Yes - General General: Alert and oriented X 3, No acute distress, Well developed/nourished - HEENT HEENT: Atraumatic, PERRL, EOMI - Neck Neck: Supple, no meningeal sign, Other (Left neck discomfort to palpation in the trapezius muscle distribution.) - Derm Derm: Normal color, Warm and dry - Neuro Neuro: Alert and oriented X 3, 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 Conservative measures discussed. Return precautions discussed. Patient will follow up with [facility]. Departure - Departure Disposition: Home, Self Care Clinical Impression: Neck pain on left side Condition: Good Instructions: ED Neck Pain No Trauma Comments: You were seen in the emergency department for left trapezius muscle strain. Please follow-up with [facility]. Return to the emergency department if you develop any new or worsening symptoms or other concerns. Take ibuprofen 600 mg every 6 hours as needed for pain on a full stomach. Forms: Activity restrictions
[2020-06-27 08:15] VITALS: BP 130/83
== END 2020-06-27 08:17 | disposition home or self-care (01) ==
LOC: ED 06:39
DX: S16.1XXA Strain of muscle, fascia and tendon at neck level, initial encounter (principal); X58.XXXA Exposure to other specified factors, initial encounter; M25.512 Pain in left shoulder
CPT/HCPCS: 96372; 99282; 99283

== ENCOUNTER 2020-06-29 12:10 | Emergency (ER) | payer OTHER ==
[2020-06-29] MEDS ORDERED: HYDROcod/ACETAM 5/325 MG TABLET PO STA (15:06)
--- NOTE | 2020-06-29 15:08 | ED Physician Documentation ---
PD HPI UPPER EXT INJURY - Stated complaint Stated Complaint: LT SHOULDER PX - Chief complaint Chief Complaint: Ext Problem - History obtained from History obtained from: Patient - Additonal information Additional information: He woke up about a week ago with pain of the left shoulder. Hurts to raise the shoulder. He was seen here and prescribed NSAIDs which have not been helpful. No fevers. No neck stiffness. Review of Systems Constitutional: denies: Fever, Chills Ears: reports: Reviewed and negative Nose: reports: Reviewed and negative Throat: reports: Reviewed and negative Cardiac: reports: Reviewed and negative PD PAST MEDICAL HISTORY - Past Medical History Past Medical History: Yes Cardiovascular: None Respiratory: None Neuro: None Endocrine/Autoimmune: None GI: None : None HEENT: None Psych: None Musculoskeletal: None Derm: None - Past Surgical History Past Surgical History: No - Present Medications Home Medications: Ambulatory Orders Medication Instructions Recorded Confirmed HYDROcod/ACETAM 5/325 [Gregory 5/325] 1 - 2 tab PO Q6H PRN #15 tablet 06/29/20 - Allergies Allergies/Adverse Reactions: Allergies Allergy/AdvReac Type Severity Reaction Status Date / Time oseltamivir [From Tamiflu] Allergy Hallucinati Verified 06/29/20 12:43 ons - Social History Does the pt smoke?: No Smoking Status: Never smoker Does the pt drink ETOH?: Yes Does the pt have substance abuse?: No - Immunizations Immunizations are current?: Yes - POLST Patient has POLST: No PD ED PE NORMAL - Vitals Vital signs reviewed: Yes - General General: Alert and oriented X 3, No acute distress - HEENT HEENT: PERRL, EOMI - Neck Neck: No bony TTP, Other (He is quite tender across the top of the PET trapezius. No midline spinal tenderness. 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, thumb extension, interosseous strength, and sensation throughout the hands.) - Neuro Neuro: Alert and oriented X 3, Normal speech Results - Vitals Vitals: Vital Signs - 24 hr 06/29/20 12:38 Temperature 36.3 C L Heart Rate 55 L Respiratory 16 Rate Blood Pressure 132/64 H O2 Saturation 99 Oxygen O2 Source Room air Departure - Departure Disposition: 01 Home, Self Care Clinical Impression: Muscle strain Condition: Good Record reviewed to determine appropriate education?: Yes Instructions: ED Sprain Strain Neck Prescriptions: HYDROcod/ACETAM 5/325 [Gregory 5/325] 1 - 2 tab PO Q6H PRN #15 tablet PRN Reason: Pain Comments: [place], if symptoms are persistent, consider MRI of the neck to rule out radiculopathy. Return if worse. Forms: Activity restrictions
[2020-06-29 15:19] VITALS: BP 129/84
--- OUTSIDE RECORDS SUMMARY | 2020-07-05 23:52 | EXTERNAL MEDICAL SUMMARY RPT | Continuity of Care Document ---
:1990 Demographics Phone Unavailable Preferred Language Unknown Marital Status Unknown Episcopalian Affiliation Unknown Race Unknown Ethnic Group Unknown Author Organization [place] Address [address] [place] [address] Phone Social History date description facility [phone]
== END 2020-06-29 15:19 | disposition home or self-care (01) ==
LOC: ED 12:10
DX: S16.1XXA Strain of muscle, fascia and tendon at neck level, initial encounter (principal); X58.XXXA Exposure to other specified factors, initial encounter
CPT/HCPCS: 99282; 99283; A9270

== ENCOUNTER 2020-08-27 17:27 | Emergency (ER) | payer OTHER ==
--- OUTSIDE RECORDS SUMMARY | 2020-08-27 17:31 | EXTERNAL MEDICAL SUMMARY RPT | Continuity of Care Document ---
:1990 Demographics Phone Unavailable Preferred Language Unknown Marital Status Unknown Sikhism Affiliation Unknown Race Unknown Ethnic Group Unknown Author Organization [place] Address [address] [place] [address] Phone Allergies Encounters Medications Problems Results
--- OUTSIDE RECORDS SUMMARY | 2020-08-27 17:35 | EXTERNAL MEDICAL SUMMARY RPT | Continuity of Care Document ---
:1990 Demographics Phone Unavailable Preferred Language Unknown Marital Status Unknown Holiness Affiliation Unknown Race Unknown Ethnic Group Unknown Author Organization [place] Address [address] [place] [address] Phone Allergies Encounters Medications Problems Results
[2020-08-27 17:39] VITALS: BP 145/86
[2020-08-27] MEDS ORDERED: PROPARACAINE 0.5% OPHTH DROPS 15 ML EACHEYE STA (18:09)
--- NOTE | 2020-08-27 18:43 | ED Physician Documentation ---
PD HPI OPHTHO - Stated complaint Stated Complaint: LEFT EYE PX,RED,MUCUS - Chief complaint Chief Complaint: Heent - History obtained from History obtained from: Patient - History of Present Illness Timing - onset: Today Timing - duration: Days (1) Timing - details: Gradual onset Pain level max: 5 Pain level now: 3 Location: Left Quality / character: Burning, Aching Associated symptoms: Redness, Tearing Contributing factors: Wears contacts (does not sleep in contacts). No: Exposed to conjunctivitis, Recent URI, FB, UV light (welding etc), Chemical exposure, acid, Chemical exposure, base, Blunt trauma Recently seen: Not recently seen Review of Systems Constitutional: denies: Fever, Chills Eyes: reports: Photophobia Throat: denies: Sore throat GI: denies: Vomiting Skin: denies: Rash Neurologic: denies: Headache PD PAST MEDICAL HISTORY - Past Medical History Cardiovascular: None Respiratory: None Neuro: None Endocrine/Autoimmune: None GI: None : None HEENT: None Psych: None Musculoskeletal: None Derm: None - Past Surgical History Past Surgical History: No - Present Medications Home Medications: Ambulatory Orders Medication Instructions Recorded Confirmed Ofloxacin 0.3% Ophth Drops 2 drops OPTH Q4H #5 ml 08/27/20 [Ocuflox 0.3% Ophth Drops] - Allergies Allergies/Adverse Reactions: Allergies Allergy/AdvReac Type Severity Reaction Status Date / Time oseltamivir [From Tamiflu] Allergy Hallucinati Verified 08/27/20 17:39 ons - Social History Does the pt smoke?: No Smoking Status: Never smoker Does the pt drink ETOH?: Yes Does the pt have substance abuse?: No - Immunizations Immunizations are current?: Yes - POLST Patient has POLST: No PD ED PE NORMAL - Vitals Vital signs reviewed: Yes - General General: Alert and oriented X 3, No acute distress - HEENT HEENT: Moist mucous membranes, Other (L eye - Conjunctival injection. Tearing. No visible foreign bodies. There appears to be superficial punctate uptake of the fluorescein stain across the cornea.) - Neck Neck: Supple, no meningeal sign - Derm Derm: Warm and dry - Neuro Neuro: Alert and oriented X 3 - Psych Psych: Normal mood, Normal affect Results - Vitals Vitals: Oxygen O2 Source Room air PD MEDICAL DECISION MAKING - ED course Complexity details: considered differential, d/w patient ED course: Patient with what appears to be likely superficial punctate keratitis. We will place on ophthalmic antibiotics. We will have him follow-up closely with ophthalmology for further care. Possible this could be a conjunctivitis as well. Informed the patient not to wear contact lenses until released by ophthalmology. Patient counseled regarding signs and symptoms for which I believe and urgent re-evaluation would be necessary. Patient with good understanding of and agreement to plan and is comfortable going home at this time This document was made in part using voice recognition software. While efforts are made to proofread this document, sound alike and grammatical errors may occur. Symptoms resolved with application of proparacaine Departure - Departure Disposition: Home, Self Care Clinical Impression: Superficial punctate keratitis of left eye Condition: Good Instructions: ED Conjunctivitis Bacterial Follow-Up: [facility] Pritchett MD [Provider Admit Priv/Credential] - Within 3 Days Prescriptions: Ofloxacin 0.3% Ophth Drops [Ocuflox 0.3% Ophth Drops] 2 drops OPTH Q4H #5 ml Comments: Use the antibiotic drops at home. Do not wear your contact lenses until released by ophthalmology. You can use artificial tears and gel tears at home as well. Return if you worsen. Discharge Date/Time: 08/27/20 18:51
== END 2020-08-27 18:51 | disposition home or self-care (01) ==
LOC: ED 17:27
DX: H16.142 Punctate keratitis, left eye (principal)
CPT/HCPCS: 99282; 99284; J3490